=== PATIENT | female | born 1975 | race Caucasian/White ===

== ENCOUNTER 2024-01-26 08:05 | Outpatient (CLI) | payer BC, SELFPAY ==
[2024-01-26 08:30] VITALS: BP 126/76; PULSE 82; RESP 14; TEMP 36.4; O2SAT 97; BMI 26.4
[2024-01-26 09:03] LABS: Hematocrit 38.6 % (40.0-49.0); Mean Corpuscular HGB Conc 31.1 g/dL (32-36); Mean Corpuscular Hemoglobin 29.6 pg (27.0-31.0); Mean Corpuscular Volume 95.1 fL (78.0-102.0); Mean Platelet Volume 9.2 fl (8.7-11.0); Platelet Count Result 358 K/mm3 (150-420); Red Blood Count 4.06 M/mm3 (4.70-6.10); Red Cell Distribution Width 15.9 % (11.6-14.4); White Blood Count 9.3 K/mm3 (4.8-10.8)
[2024-01-26 09:16] LABS: Alanine Aminotransferase 19 U/L (16-59); Albumin Level 2.8 g/dL (3.4-5.0); Alkaline Phosphatase 54 U/L; Anion Gap 7 mmol/L (4-12); Aspartate Amino Transferase 19 U/L (15-37); Bilirubin,Total 0.4 mg/dL (0.00-1.00); Blood Urea Nitrogen 8 mg/dL (7-18); Calcium 8.5 mg/dL (8.5-10.1); Carbon Dioxide 26 mmol/L (21-32); Chloride 104 mmol/L (98-108); Estimated Glomerular Filt Rate > 60; Glucose 90 mg/dL (70-99); Osmolality Calculated 282 mOsm/kg (285-295); Potassium 4.1 mmol/L (3.5-5.1); Sodium 137 mmol/L (136-145); Total Protein 6.9 g/dL (6.4-8.2); Vancomycin Trough 15.7 ug/mL (10.0-15.0)
[2024-01-26 09:23] LABS: Band Neutrophils Percent 0 % (0-6); Eosinophils Absolute Manual 0.65 K/mm3 (0.02-0.50); Eosinophils Percent Manual 7 % (1-6); Lymphocytes Absolute Manual 0.83 K/mm3; Lymphocytes Percent Manual 9 % (18-44); Monocytes Absolute Manual 0.27 K/mm3 (0.1-0.90); Monocytes Percent Manual 3 % (3-9); Neutrophils Absolute Manual 7.53 K/mm3; Neutrophils Percent Manual 81 % (46-73); Platelet Estimate Adequate (Adequate); Total Cells Counted 100
--- NOTE | 2024-01-26 10:38 | PC.NURSE ---
Patient tolerated picc line blood draw and dressing change. Refer to patient care charting.
== END 2024-01-26 08:06 | disposition home or self-care (01) ==
PROVIDERS: Visit Provider Internal Medicine
DX: T81.49XA Infection following a procedure, other surgical site, initial encounter (principal); T81.30XA Disruption of wound, unspecified, initial encounter; L03.313 Cellulitis of chest wall; L03.311 Cellulitis of abdominal wall; B99.9 Unspecified infectious disease; B96.5 Pseudomonas (aeruginosa) (mallei) (pseudomallei) as the cause of diseases classified elsewhere; S21.0 Open wound of breast
CPT/HCPCS: 36415; 36591; 80053; 80202; 85025

== ENCOUNTER 2024-01-29 07:40 | Emergency (ER) | payer BC, SELFPAY ==
[2024-01-29] VITALS (26 sets, daily range): BP systolic 112–150; BP diastolic 70–103; PULSE 80–114; RESP 16–28; TEMP 36.6–36.7; O2SAT 97–100
--- NOTE | ~2024-01-29 | CT_ITS ---
EXAMINATION: CT abdomen pelvis w con DATE: 01/29/2024 10:37 INDICATION: Generalized abdominal pain. Nausea and vomiting. TECHNIQUE: Computed tomography (CT) of the abdomen and pelvis was performed with 100 mL Omnipaque 350 intravenous contrast. Automated exposure control and iterative reconstruction technique were employe d. The dose-length product was 184.17 mGy-cm. COMPARISON: None. FINDINGS: The visualized portions of the lung bases demonstrate mild atelectasis. No pleural effusion . The heart size is normal. No pericardial effusion. The liver is normal. The gallbladder is normal i n size. The spleen, pancreas, adrenal glands, and kidneys are normal. There are no dilated loops of b owel. The appendix is normal. There are no pathologically enlarged lymph nodes. There is no free intr aperitoneal fluid. There is subcutaneous fat stranding in the abdominal wall, consistent with changes of abdominoplasty. There is mild lumbar spondylosis. IMPRESSION: 1. Surgical changes of abdominoplasty. Reviewed, dictated and finalized at location A.
--- NOTE | 2024-01-29 07:50 | PC.NURSE ---
IV patient came with is not working and patient states is painful to flush. Patient is refusing all other sticks. Patient has PICC line that she has been using for her antibiotic infusions and requesting RN to use that. ERP gave approval for use of picc line.
[2024-01-29] MEDS: LORazepam INJ (*CRX) 2 MG/ML VIAL 1 MG IV PUSH (07:54)
[2024-01-29] MEDS: PANTOPRAZOLE SODIUM IV 40 MG VIAL IV PUSH (08:07)
[2024-01-29] MEDS: ONDANSETRON INJ 4 MG/2 ML VIAL IV PUSH (08:07)
[2024-01-29 08:21] LABS: Basophils Absolute Auto 0.07 K/mm3 (0.00-0.10); Basophils Percent Auto 1.2 % (0.0-1.0); Eosinophils Absolute Auto 0.16 K/mm3 (0.02-0.50); Eosinophils Percent Auto 2.8 % (1.0-6.0); Hematocrit 39.8 % (35.0-49.0); Hemoglobin 13.4 g/dL (12.0-15.0); Immature Granulocyte Absolute 0.02 K/mm3 (0.00-0.00); Immature Granulocyte Percent A 0.4 % (0.0-0.0); Lymphocytes Absolute Auto 0.93 K/mm3 (1.10-4.50); Lymphocytes Percent Auto 16.5 % (18.0-42.0); Mean Corpuscular HGB Conc 33.7 g/dL (32-36); Mean Corpuscular Hemoglobin 29.8 pg (27.0-31.0); Mean Corpuscular Volume 88.6 fL (78.0-102.0); Mean Platelet Volume 9.2 fl (9.2-11.8); Monocytes Absolute Auto 0.26 K/mm3 (0.10-0.90); Monocytes Percent Auto 4.6 % (2.0-11.0); Neutrophils Absolute Auto 4.18 K/mm3 (1.70-7.20); Neutrophils Percent Auto 74.5 % (50.0-70.0); Platelet Count Result 361 K/mm3 (150-420); Red Blood Count 4.49 M/mm3 (4.20-5.40); Red Cell Distribution Width 15.2 % (11.6-14.4); White Blood Count 5.6 K/mm3 (4.8-10.8)
--- NOTE | 2024-01-29 08:33 | PC.NURSE ---
Patient provided ice chips with ERP approval.
[2024-01-29 08:36] LABS: Partial Thromboplastin Time 25.6 Sec (23.9-30.70); Prothrombin Time 10.9 Seconds (9.50-12.1)
[2024-01-29 08:39] LABS: Alanine Aminotransferase 17 U/L (14-59); Alkaline Phosphatase 65 U/L (46-116); Anion Gap 14 mmol/L (4-12); Aspartate Amino Transferase 18 U/L (15-37); Bilirubin,Total 0.5 mg/dL (0.00-1.00); Blood Urea Nitrogen 7 mg/dL (7-18); Calcium 9.2 mg/dL (8.5-10.1); Carbon Dioxide 22 mmol/L (21-32); Chloride 99 mmol/L (98-108); Estimated CRCL calculation 81 ml/min; Estimated Glomerular Filt Rate > 60; Glucose 83 mg/dL (70-99); Lipase 21 U/L (16-77); Osmolality Calculated 277 mOsm/kg (285-295); Potassium 3.4 mmol/L (3.5-5.1); Sodium 135 mmol/L (136-145); Total Protein 7.8 g/dL (6.4-8.2)
--- NOTE | 2024-01-29 08:43 | PC.NURSE ---
Radiology states they cannot use patient's picc line for CT scan. This explained to patient. She is cooperative for IV to be started.
[2024-01-29 08:44] LABS: Lactic Acid Reflex 1.5 mmol/L (0.4-2.0)
--- NOTE | 2024-01-29 08:57 | PC.NURSE ---
patient ambulatory to bathroom at this time with steady gait. Patient refused wheelchair.
--- NOTE | 2024-01-29 09:02 | PC.NURSE ---
Patient unable to urinate at this time.
--- NOTE | 2024-01-29 09:42 | PC.NURSE ---
Patient ambulatory to bathroom and back with steady gait. Patient able to give urine sample.
[2024-01-29 09:49] LABS: Appearance Urine Clear (Clear); Bilirubin Urine 1+ (Negative); Blood Urine Negative (Negative); Glucose Urine UA Negative (Negative); Ketones Urine 2+ (Negative); Leukocyte Esterase Ur Negative LEU/UL (Negative); Nitrate Urine Negative (Negative); Protein Urine 1+ (Negative); Urobilinogen Urine 0.2 mg/dL (0.2-1.0)
[2024-01-29 09:58] LABS: Add Urine Microscopic? YES; Bacteria Urine None seen /hpf; Color Urine Dark Brown (Yellow); Mucus Urine Heavy /lpf; RBC Urine None seen /hpf (0-2); Squamous Epithelial Cell Urine Many /hpf (Few); WBC Urine None seen /hpf (0-3)
[2024-01-29 10:00] LABS: Pregnancy On Board Control Positive; Urine Pregnancy Test Negative
--- NOTE | 2024-01-29 10:32 | PC.NURSE ---
patient back in room from Ct.
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
== END 2024-01-29 11:00 | disposition home or self-care (01) ==
PROVIDERS: Emergency Provider Emergency Medicine
DX: F41.9 Anxiety disorder, unspecified (principal); R10.84 Generalized abdominal pain; Z79.899 Other long term (current) drug therapy; Z79.891 Long term (current) use of opiate analgesic
CPT/HCPCS: 36415; 74177; 80053; 81001; 81025; 83605; 83690; 85025; 85610; 85730; 96374; 96375; 99284; C9113; J2060; J2405; Q9967

== ENCOUNTER 2024-02-02 08:55 | Outpatient (RCR) | payer BC, SELFPAY ==
[2024-02-02 09:33] VITALS: BP 132/77; PULSE 78; RESP 16; TEMP 36.1; O2SAT 98
[2024-02-02 09:51] VITALS: BMI 25.0
--- NOTE | 2024-02-02 09:52 | PC.NURSE ---
Patient came up for a blood draw and dressing change for a PICC line. PICC line was not able to be drawn from at this time. Flushed with Heparin and Saline. Dressing changed without difficulty. Patent taken back to lab for a blood draw.
[2024-02-02 09:54] LABS: Basophils Absolute Auto 0.04 K/mm3 (0.00-0.10); Basophils Percent Auto 0.6 % (0.0-1.0); Eosinophils Absolute Auto 0.32 K/mm3 (0.02-0.50); Eosinophils Percent Auto 4.5 % (1.0-6.0); Hematocrit 43.1 % (35.0-49.0); Immature Granulocyte Absolute 0.02 K/mm3 (0.00-0.00); Immature Granulocyte Percent A 0.3 % (0.0-0.0); Lymphocytes Absolute Auto 0.68 K/mm3 (1.10-4.50); Lymphocytes Percent Auto 9.7 % (18.0-42.0); Mean Corpuscular HGB Conc 32.5 g/dL (32-36); Mean Corpuscular Hemoglobin 29.2 pg (27.0-31.0); Mean Corpuscular Volume 89.8 fL (78.0-102.0); Mean Platelet Volume 8.5 fl (9.2-11.8); Monocytes Absolute Auto 0.31 K/mm3 (0.10-0.90); Monocytes Percent Auto 4.4 % (2.0-11.0); Neutrophils Absolute Auto 5.67 K/mm3 (1.70-7.20); Neutrophils Percent Auto 80.5 % (50.0-70.0); Platelet Count Result 305 K/mm3 (150-420); Red Cell Distribution Width 14.6 % (11.6-14.4)
[2024-02-02 10:22] LABS: Alanine Aminotransferase 22 U/L (14-59); Alkaline Phosphatase 58 U/L (46-116); Anion Gap 9 mmol/L (4-12); Aspartate Amino Transferase 21 U/L (15-37); Bilirubin,Total 0.4 mg/dL (0.00-1.00); Blood Urea Nitrogen 5 mg/dL (7-18); Calcium 8.8 mg/dL (8.5-10.1); Carbon Dioxide 29 mmol/L (21-32); Chloride 101 mmol/L (98-108); Estimated CRCL calculation 69 ml/min; Estimated Glomerular Filt Rate > 60; Glucose 86 mg/dL (70-99); Osmolality Calculated 284 mOsm/kg (285-295); Potassium 3.3 mmol/L (3.5-5.1); Sodium 139 mmol/L (136-145); Total Protein 7.1 g/dL (6.4-8.2); Vancomycin Trough 3.3 ug/mL (10.0-15.0)
== END 2024-05-02 23:59 | disposition home or self-care (01) ==
LOC: CHSLAB 08:55
PROVIDERS: Visit Provider Internal Medicine
DX: S21.0 Open wound of breast (principal); T81.49XD Infection following a procedure, other surgical site, subsequent encounter
CPT/HCPCS: 36415; 80053; 80202; 85025